=== PATIENT | male | born 1990 | race Caucasian/White ===

== ENCOUNTER → 2018-12-04 | Outpatient (CLI) | payer OTHER ==
--- NOTE | 2018-12-04 16:48 | RADIOLOGY IMAGING REPORT ---
FACILITY: [facility] [place] PATIENT NAME: Salinas Cee : 1990 MR: [id number] V: [id number] EXAM DATE: [id number] ORDERING PHYSICIAN: FRANK BROCK TECHNOLOGIST: Location: [facility] [place] Patient: Salinas Cee : 1990 Visit/Account:[id number] Date of Sevice: 12/04/2018 EXAMINATION: Scrotal ultrasound with duplex Doppler evaluation. HISTORY: Left testicular pain. COMPARISON: None. FINDINGS: Normal size and echogenicity of both testicles. No focal intratesticular mass. The right testis alex ures 4.6 x 1.8 x 3.2 cm; the left testis 5.0 x 2.0 x 2.6 cm. Both testicles demonstrate normal and sy mmetric vascularity with Doppler evaluation. Normal appearance of the epididymis on each side, with normal and symmetric vascularity. The epididym al head measures 1.2 cm on the right and 1.1 cm on the left. There are small epididymal cysts in the head of each epididymis measuring 3 mm on the right and 6 mm on the left. No significant hydrocele or varicocele. IMPRESSION: 1. Small epididymal cysts along the head of each epididymis. 2. Otherwise unremarkable testicular ultrasound. Report Dictated By: Lake Sheikh MD at 12/04/2018 4:41 PM Report E-Signed By: Lake Sheikh MD at 12/04/2018 4:43 PM WSN:[id number]
== END ==
LOC: US 07:05
PROVIDERS: ATTEND Urology
DX: N50.3 Cyst of epididymis (principal)
CPT/HCPCS: 76870